=== PATIENT | female | born 1980 | race Caucasian/White ===

== ENCOUNTER 2017-04-14 14:48 | Emergency (ER) | payer MEDICARE, OTHER ==
[~2017-04-14] VITALS: Ht 142.2 cm; Wt 82.0 kg
[2017-04-14] MEDS ORDERED: CLON.5 PO (15:27)
[2017-04-14] MEDS ORDERED: ESCI10TA PO (15:27)
[2017-04-14] MEDS ORDERED: ADV250 IH (15:27)
[2017-04-14] MEDS ORDERED: ClonazePAM 0.5 MG TABLET PO ONE (15:45)
[2017-04-14] MEDS ORDERED: ClonazePAM 1 MG TABLET PO ONE (15:45)
[2017-04-14 17:56] VITALS: BP 115/59
== END 2017-04-14 18:18 | disposition home or self-care (01) ==
LOC: EMS 15:00
DX: F41.9 Anxiety disorder, unspecified (principal); J45.909 Unspecified asthma, uncomplicated; Q90.9 Down syndrome, unspecified; R62.50 Unspecified lack of expected normal physiological development in childhood; Z88.2 Allergy status to sulfonamides
CPT/HCPCS: 99284